=== PATIENT | male | born 1980 | race Native Hawaiian/Other Pacific Islander ===

== ENCOUNTER 2018-03-20 11:06 | Emergency (ER) | payer OTHER ==
[~2018-03-20] VITALS: Ht 182.9 cm; Wt 86.2 kg
[2018-03-20 11:45] LABS: PLATELET COUNT 355 K/uL (142-355)
[2018-03-20 12:03] LABS: POTASSIUM 4.4 mmol/L (3.6-5.2)
[2018-03-20 15:40] VITALS: BP 147/65; TEMP 97.2
== END 2018-03-20 15:40 | disposition home or self-care (01) ==
LOC: ED 11:06
PROVIDERS: Emergency Medicine
DX: B96.81 Helicobacter pylori [H. pylori] as the cause of diseases classified elsewhere (principal)
CPT/HCPCS: 36415; 80053; 81000; 82150; 83690; 85027; 86318; 96365; 96374; 96375; 99284; Q9963

== ENCOUNTER 2021-11-17 21:45 | Emergency (ER) | payer OTHER ==
[~2021-11-17] VITALS: Ht 180.3 cm; Wt 72.6 kg
[2021-11-17 23:13] LABS: PLATELET COUNT 199 K/uL (142-355)
[2021-11-17 23:18] LABS: POTASSIUM 3.9 mmol/L (3.6-5.2)
[2021-11-17 23:58] VITALS: BP 126/78; TEMP 98.3
== END 2021-11-17 23:58 | disposition home or self-care (01) ==
LOC: ED 21:45
PROVIDERS: Hospitalist
DX: R07.89 Other chest pain (principal); R09.1 Pleurisy; J06.9 Acute upper respiratory infection, unspecified; U07.1 COVID-19; F17.210 Nicotine dependence, cigarettes, uncomplicated
CPT/HCPCS: 36415; 80053; 82550; 83880; 84484; 85027; 85379; 85610; 85730; 87635; 93005; 96374; 96375; 99284; J1100; J1885; U0003